=== PATIENT | male | born 1975 | race African-American/Black ===

== ENCOUNTER 2019-03-05 08:09 | Emergency (ER) | payer MEDICAID ==
[~2019-03-05] VITALS: Ht 180.3 cm; Wt 104.0 kg
[2019-03-05 10:10] VITALS: BP 128/81
== END 2019-03-05 10:53 | disposition home or self-care (01) ==
LOC: ED 10:47
DX: I83.12 Varicose veins of left lower extremity with inflammation (principal); I83.11 Varicose veins of right lower extremity with inflammation
CPT/HCPCS: 36415; 71045; 80053; 81003; 83735; 83880; 84436; 84443; 84484; 85025; 93005; 99284

== ENCOUNTER 2020-01-18 23:38 | Emergency (ER) | payer MEDICAID ==
[~2020-01-18] VITALS: Ht 180.3 cm; Wt 107.0 kg
--- NOTE | 2020-01-19 00:58 | NUR ---
PT TO ED WITH C/O PALPITATIONS AND SYMPTOMS OF HEART FLUTTERING. PT REPORTS HE WOKE OUT OF SLEEP DUE TO THIS. DENIES ANY CHEST PAIN. REPORTS FEELING OF NOT BEING ABLE TO CATCH HER BREATH SINCE INCIDENT BUT DENIES SHORTNESS OF BREATH OTHERWISE, FEVER, VOMITING OR CHILLS. PLACED ON PROJECT ADMINISTRATOR IN NSR AND CONTINUOUS PULSE OX AT 98%.
[2020-01-19 01:36] LABS: ALBUMIN 3.4 g/dL (3.4-5.0); ANION GAP 7 mmol/L (5-15); CALCIUM 8.9 mg/dL (8.5-10.1); CHLORIDE 108 mmol/L (98-107); CREATININE 1.37 mg/dL (0.7-1.3)
[2020-01-19 01:40] LABS: TROPONIN I < 0.015 ng/mL (0.000-0.045)
[2020-01-19 01:50] LABS: MEAN CORPUSCULAR HEMOGLOBIN 31.9 pg (27.5-34.5); MEAN CORPUSCULAR HGB CONC 33.9 g/dL (33.2-36.2); MEAN CORPUSCULAR VOLUME 94.3 fL (81-97); MEAN PLATELET VOLUME 7.6 fL (7.4-10.4); PLATELET COUNT 256 x10^3/uL (130-400); RED CELL DISTRIBUTION WIDTH 14.5 % (9.4-14.8)
[2020-01-19 02:07] LABS: MD YES
[2020-01-19 02:11] LABS: <RBC MORPHOLOGY> NORMAL; LYMPH#(MANUAL) 1.98 x10^3/uL (1-3.4); LYMPHS% (MANUAL) 33 % (22-44); MONOS#(MANUAL) 0.66 x10^3/uL (0.3-2.7); MONOS% (MANUAL) 11 % (2-9); SEG#(MANUAL) 3.36 x10^3/uL (1.8-6.8); SEGS% (MANUAL) 56 % (42-75)
[2020-01-19 02:12] LABS: <PLATELET ESTIMATE> ADEQUATE; <PLT MORPHOLOGY> NORMAL PLT MORPH
[2020-01-19 02:50] VITALS: BP 134/86
== END 2020-01-19 02:52 | disposition home or self-care (01) ==
LOC: ED 01-19 02:41
DX: R00.2 Palpitations (principal); R07.9 Chest pain, unspecified; R09.81 Nasal congestion
CPT/HCPCS: 36415; 71045; 80048; 82040; 83735; 84443; 84484; 85025; 93005; 99285

== ENCOUNTER 2020-02-02 23:46 | Emergency (ER) | payer MEDICAID ==
[~2020-02-02] VITALS: Ht 180.3 cm; Wt 106.0 kg
--- NOTE | 2020-02-03 00:33 | NUR ---
PATIENT STATED THAT HE HAS TINGLING IN HIS FINGERS BILATERALLY. PATIETN ADMITS THAT WHEN THE SYMPTOMS START HE NOTICES THAT HE MAY BE HAVING A PANIC ATTACK. PATIENT ADMITS TO HAVING NEW STRESSORS OVER THE LAST SIX MONTHS. NO NOTED ACUTE DISTRESS. UPON INTERVIEW. PATIENT TOLERATING INTERVENTIONS WELL. WILL CONTINUE TO MONITOR.
[2020-02-03 01:23] LABS: ALANINE AMINOTRANSFERASE 37 U/L (12-78); ALBUMIN 3.3 g/dL (3.4-5.0); ANION GAP 7 mmol/L (5-15); CALCIUM 8.7 mg/dL (8.5-10.1); CHLORIDE 111 mmol/L (98-107); CREATININE 1.32 mg/dL (0.7-1.3)
[2020-02-03 01:27] LABS: ALKALINE PHOSPHATASE 78 U/L (45-117); BILIRUBIN,TOTAL 0.3 mg/dL (0.2-1.0); TROPONIN I < 0.015 ng/mL (0.000-0.045)
[2020-02-03 01:29] LABS: MEAN CORPUSCULAR HEMOGLOBIN 31.6 pg (27.5-34.5); MEAN CORPUSCULAR HGB CONC 33.4 g/dL (33.2-36.2); MEAN CORPUSCULAR VOLUME 94.6 fL (81-97); MEAN PLATELET VOLUME 8.2 fL (7.4-10.4); PLATELET COUNT 266 x10^3/uL (130-400); RED BLOOD COUNT 4.17 x10^6/uL (4.38-5.82); RED CELL DISTRIBUTION WIDTH 15.3 % (9.4-14.8)
[2020-02-03 01:50] LABS: BASOPHILS # (AUTO) 0.04 x10^3/uL (0-0.1); BASOPHILS % (AUTO) 1 % (0-1); EOSINOPHILS # (AUTO) 0.06 x10^3/uL (0-0.4); EOSINOPHILS % (AUTO) 1 % (1-7); LYMPHOCYTES # (AUTO) 1.81 x10^3/uL (1-3.4); LYMPHOCYTES % (AUTO) 33 % (22-44); MD SCAN; MONOCYTES # (AUTO) 0.74 x10^3/uL (0.2-0.8); MONOCYTES % (AUTO) 13 % (2-9); NEUTROPHILS # (AUTO) 2.87 x10^3/uL (1.8-6.8); NEUTROPHILS % (AUTO) 52 % (42-75)
[2020-02-03 02:05] VITALS: BP 138/74
== END 2020-02-03 02:07 | disposition home or self-care (01) ==
LOC: ED 02-03 01:34
DX: R00.2 Palpitations (principal); I49.3 Ventricular premature depolarization; R20.0 Anesthesia of skin; R06.02 Shortness of breath
CPT/HCPCS: 36415; 71045; 80053; 84484; 85025; 93005; 99285

== ENCOUNTER 2020-03-27 08:36 | Emergency (ER) | payer MEDICAID ==
[~2020-03-27] VITALS: Ht 180.3 cm; Wt 103.6 kg
--- NOTE | 2020-03-27 08:47 | NUR ---
TASK RN: PT AMBULATORY TO ROOM 16 W/ C/O MID ABD PAIN W/ ROUNDNESS/FIRMNESS STARTED 4 DAYS AGO. PT ALSO C/O N/V AND ONE BOUT DIARRHEA YESTERDAY. PT DENIES ANY HX GI ISSUES. PT RESTING ON JOHN. KAEL.
[2020-03-27 08:58] VITALS: BP 126/84
[2020-03-27 09:20] LABS: MEAN CORPUSCULAR HEMOGLOBIN 31.7 pg (27.5-34.5); MEAN CORPUSCULAR HGB CONC 33.2 g/dL (33.2-36.2); MEAN CORPUSCULAR VOLUME 95.6 fL (81-97); MEAN PLATELET VOLUME 7.8 fL (7.4-10.4); PLATELET COUNT 249 x10^3/uL (130-400); RED BLOOD COUNT 4.83 x10^6/uL (4.38-5.82); RED CELL DISTRIBUTION WIDTH 13.6 % (9.4-14.8)
[2020-03-27 09:24] LABS: MICROSCOPIC NOT IND
[2020-03-27 09:29] LABS: ALANINE AMINOTRANSFERASE 49 U/L (12-78); ALBUMIN 3.8 g/dL (3.4-5.0); ANION GAP 6 mmol/L (5-15); CALCIUM 9.1 mg/dL (8.5-10.1); CHLORIDE 110 mmol/L (98-107); CREATININE 1.19 mg/dL (0.7-1.3)
[2020-03-27 09:31] LABS: ALKALINE PHOSPHATASE 84 U/L (45-117); BILIRUBIN,TOTAL 0.8 mg/dL (0.2-1.0); TOTAL PROTEIN 7.6 g/dL (6.4-8.2)
[2020-03-27 09:33] LABS: BASOPHILS # (AUTO) 0.01 x10^3/uL (0-0.1); BASOPHILS % (AUTO) 0 % (0-1); EOSINOPHILS # (AUTO) 0.05 x10^3/uL (0-0.4); EOSINOPHILS % (AUTO) 1 % (1-7); LYMPHOCYTES # (AUTO) 1.77 x10^3/uL (1-3.4); LYMPHOCYTES % (AUTO) 33 % (22-44); MD SCAN; MONOCYTES # (AUTO) 0.67 x10^3/uL (0.2-0.8); MONOCYTES % (AUTO) 13 % (2-9); NEUTROPHILS # (AUTO) 2.79 x10^3/uL (1.8-6.8); NEUTROPHILS % (AUTO) 53 % (42-75)
--- NOTE | 2020-03-27 10:36 | NUR ---
Patient given discharge instructions and they have confirmed that they understand the instructions. Patient ambulatory with steady gait.
== END 2020-03-27 11:13 | disposition home or self-care (01) ==
LOC: ED 09:16
DX: R10.84 Generalized abdominal pain (principal); R11.2 Nausea with vomiting, unspecified
CPT/HCPCS: 36415; 80053; 81003; 83690; 85025; 99283